=== PATIENT | male | born 1990 | race Caucasian/White ===

== ENCOUNTER 2016-12-22 09:30 | Emergency (ER) | payer OTHER ==
[2016-12-22 10:09] LABS: BASOPHIL 0.3 % (0-2); EOSINOPHIL 2.3 % (0-5); HCT 45.4 % (42.0-52.0); HGB 15.7 g/dl (13.2-18.0); LYMPHOCYTE 11.7 % (15-48); MCH 29.7 pg (25.0-31.0); MCHC 34.6 g/dL (32.0-36.0); MCV 85.8 fL (78.0-100.0); MONOCYTE 10.8 % (0-12); MPV 9.6 fL (6.0-9.5); NEUTROPHIL 74.9 % (41-80); PLT 292 K/uL (150-400); RBC 5.29 M/uL (4.70-6.00); RDW 12.4 % (11.5-14.0); WBC 15.4 K/uL (4.0-10.5)
[2016-12-22 10:28] LABS: ACETAMINOPHEN (TYLENOL) < 5.0 ug/mL (10.0-30.0); ALBUMIN 4.5 g/dL (3.5-5.0); ALCOHOL (ETOH) MEDICAL NONE DETECTED; BILIRUBIN - TOTAL 1.2 mg/dL (0.1-1.0); CREATININE 1.3 mg/dL (0.7-1.2); GLOBULIN (CALCULATION) 3.5 g/dL (2.2-4.2); POTASSIUM 4.3 mmol/L (3.5-5.1); SALICYLATE < 6 ug/mL (0-300)
== END 2016-12-22 11:02 | disposition critical access hospital (66) ==
LOC: FER 09:30
PROVIDERS: Emergency Medicine
DX: F19.10 Other psychoactive substance abuse, uncomplicated (principal); F17.200 Nicotine dependence, unspecified, uncomplicated
CPT/HCPCS: 36415; 80053; 85025; 99285; G0480

== ENCOUNTER 2020-11-25 03:39 | Emergency (ER) | payer OTHER ==
[2020-11-25] MEDS ORDERED: MEDROL 4MG DOSEP4 MG PO (04:21)
== END 2020-11-25 04:30 | disposition home or self-care (01) ==
LOC: FER 03:39
DX: M54.9 Dorsalgia, unspecified (principal); M25.50 Pain in unspecified joint; F17.200 Nicotine dependence, unspecified, uncomplicated; Z86.19 Personal history of other infectious and parasitic diseases
CPT/HCPCS: 99283; J7512

== ENCOUNTER 2020-11-27 20:48 | Emergency (ER) | payer OTHER ==
[~2020-11-27 20:48] MED LIST: MEDROL 4MG DOSEP4 MG PO
[2020-11-27 21:58] LABS: BASOPHIL 0.5 % (0-2); EOSINOPHIL 1.8 % (0-5); HCT 41.5 % (42.0-52.0); HGB 14.2 g/dl (13.2-18.0); LYMPHOCYTE 34.5 % (15-48); MCH 30.3 pg (25.0-31.0); MCHC 34.2 g/dL (32.0-36.0); MCV 88.7 fL (78.0-100.0); MONOCYTE 8.3 % (0-12); MPV 10.1 fL (6.0-9.5); NEUTROPHIL 54.4 % (41-80); NRBC 0; PLT 259 K/uL (150-400); RBC 4.68 M/uL (4.70-6.00); RDW 11.9 % (11.5-14.0); WBC 6.6 K/uL (4.0-10.5)
[2020-11-27 21:58] LABS: BILIRUBIN NEGATIVE (NEGATIVE); BLOOD NEGATIVE Ery/uL (NEGATIVE); CLARITY CLEAR (CLEAR); COLOR YELLOW (YELLOW); GLUCOSE (U) NORMAL (NORMAL); LEUKOCYTES 1+ Leu/uL (NEGATIVE); NITRITE NEGATIVE (NEGATIVE); PROTEIN NEGATIVE (NEGATIVE); SPECIFIC GRAVITY 1.015 (1.001-1.030); UROBILINOGEN >=8.0 mg/dL (0.2-1.0)
[2020-11-27 22:04] LABS: ALBUMIN 3.7 g/dL (3.4-5.0); BILIRUBIN - TOTAL 0.7 mg/dL (0.2-1.0); CREATININE 0.88 mg/dL (0.67-1.17); POTASSIUM 3.2 mmol/L (3.5-5.1); TOTAL PROTEIN 7.7 g/dL (6.4-8.2)
[2020-11-27 22:11] LABS: BACTERIA 2+; SQUAMOUS EPITHELIAL CELLS RARE
[2020-11-27] MEDS ORDERED: ONDANSETRON ODT4 MG PO (23:35)
[2020-11-27] MEDS ORDERED: BENTYL10 MG PO (23:35)
== END 2020-11-27 23:50 | disposition home or self-care (01) ==
LOC: FER 20:48
PROVIDERS: Nurse Practitioner Family
DX: B19.20 Unspecified viral hepatitis C without hepatic coma (principal); M54.9 Dorsalgia, unspecified
CPT/HCPCS: 36415; 80053; 81001; 85025; 87076; 87088; 87186; J1885

== ENCOUNTER 2020-11-30 00:35 | Emergency (ER) | payer OTHER ==
[~2020-11-30 00:35] MED LIST changes: +BENTYL10 MG PO; +ONDANSETRON ODT4 MG PO
[2020-11-30] MEDS ORDERED: LEVAQUIN250 MG PO (23:56)
[2020-11-30] MEDS ORDERED: PHENERGAN25 M1 PO (23:56)
== END 2020-11-30 01:20 | disposition left against medical advice (07) ==
LOC: FER 00:35
DX: R10.84 Generalized abdominal pain (principal); R11.2 Nausea with vomiting, unspecified; F17.200 Nicotine dependence, unspecified, uncomplicated; Z86.19 Personal history of other infectious and parasitic diseases; Z53.8 Procedure and treatment not carried out for other reasons
CPT/HCPCS: 99283; J2405; J7030

== ENCOUNTER 2020-11-30 20:49 | Emergency (ER) | payer OTHER ==
[2020-11-30 21:38] LABS: BASOPHIL 0.2 % (0-2); EOSINOPHIL 1.1 % (0-5); HCT 41.3 % (42.0-52.0); HGB 14.2 g/dl (13.2-18.0); LYMPHOCYTE 23.1 % (15-48); MCH 30.7 pg (25.0-31.0); MCHC 34.4 g/dL (32.0-36.0); MCV 89.2 fL (78.0-100.0); MONOCYTE 7.3 % (0-12); MPV 10.3 fL (6.0-9.5); NEUTROPHIL 67.9 % (41-80); NRBC 0; PLT 295 K/uL (150-400); RBC 4.63 M/uL (4.70-6.00); WBC 9.1 K/uL (4.0-10.5)
[2020-11-30 22:00] LABS: ALBUMIN 3.6 g/dL (3.4-5.0); BILIRUBIN - TOTAL 0.5 mg/dL (0.2-1.0); CREATININE 0.92 mg/dL (0.67-1.17); GLOBULIN (CALCULATION) 3.9 g/dL; POTASSIUM 3.5 mmol/L (3.5-5.1); TOTAL PROTEIN 7.5 g/dL (6.4-8.2)
[2020-11-30 22:13] LABS: LACTIC ACID 1.7 mmol/L (0.4-1.9)
[2020-11-30 22:22] LABS: BILIRUBIN NEGATIVE (NEGATIVE); BLOOD NEGATIVE Ery/uL (NEGATIVE); CLARITY CLEAR (CLEAR); COLOR YELLOW (YELLOW); GLUCOSE (U) NORMAL (NORMAL); LEUKOCYTES 2+ Leu/uL (NEGATIVE); NITRITE NEGATIVE (NEGATIVE); PROTEIN NEGATIVE (NEGATIVE); UROBILINOGEN 0.2 mg/dL (0.2-1.0)
[2020-11-30 22:30] LABS: BACTERIA TRACE
[2020-11-30] MEDS ORDERED: PHENERGAN25 M1 PO (23:56)
[2020-11-30] MEDS ORDERED: LEVAQUIN250 MG PO (23:56)
== END 2020-12-01 00:16 | disposition home or self-care (01) ==
LOC: FER 20:49
PROVIDERS: Emergency Medicine
DX: R10.9 Unspecified abdominal pain (principal); R11.0 Nausea; F17.200 Nicotine dependence, unspecified, uncomplicated
CPT/HCPCS: 36415; 80053; 81001; 82150; 83605; 83690; 85025; J1885; J2405; J7030

== ENCOUNTER 2020-12-31 14:39 | Emergency (ER) | payer OTHER ==
[~2020-12-31 14:39] MED LIST changes: +LEVAQUIN250 MG PO; +PHENERGAN25 M1 PO
== END 2020-12-31 14:45 | disposition home or self-care (01) ==
LOC: FER 14:39
DX: N20.0 Calculus of kidney (principal); N28.1 Cyst of kidney, acquired; Z53.8 Procedure and treatment not carried out for other reasons

== ENCOUNTER 2021-01-04 03:29 | Emergency (ER) | payer OTHER ==
[2021-01-04 04:10] LABS: BASOPHIL 0.5 % (0-2); EOSINOPHIL 4.7 % (0-5); HCT 42.2 % (42.0-52.0); HGB 14.3 g/dl (13.2-18.0); LYMPHOCYTE 30.3 % (15-48); MCH 30.3 pg (25.0-31.0); MCHC 33.9 g/dL (32.0-36.0); MCV 89.4 fL (78.0-100.0); MONOCYTE 11.4 % (0-12); MPV 10.6 fL (6.0-9.5); NEUTROPHIL 52.9 % (41-80); NRBC 0; PLT 274 K/uL (150-400); RBC 4.72 M/uL (4.70-6.00); RDW 12.7 % (11.5-14.0)
[2021-01-04 04:27] LABS: ALBUMIN 3.9 g/dL (3.4-5.0); BILIRUBIN - TOTAL 0.8 mg/dL (0.2-1.0); BUN/CREAT RATIO (CALC) 7.3 RATIO; CREATININE 1.09 mg/dL (0.67-1.17); GLOBULIN (CALCULATION) 4.1 g/dL; POTASSIUM 4.1 mmol/L (3.5-5.1)
[2021-01-04 04:53] LABS: BILIRUBIN NEGATIVE (NEGATIVE); BLOOD NEGATIVE Ery/uL (NEGATIVE); CLARITY CLEAR (CLEAR); COLOR YELLOW (YELLOW); GLUCOSE (U) NORMAL (NORMAL); LEUKOCYTES NEGATIVE Leu/uL (NEGATIVE); NITRITE NEGATIVE (NEGATIVE); PROTEIN TRACE (LOW) mg/dL (NEGATIVE)
[2021-01-04 04:57] LABS: BACTERIA TRACE; ECSTASY (MDMA) POSITIVE (NEGATIVE); MARIJUANA (THC) POSITIVE (NEGATIVE); SQUAMOUS EPITHELIAL CELLS RARE
[2021-01-04 04:58] LABS: AMPHETAMINES POSITIVE (NEGATIVE); BARBITURATES NEGATIVE (NEGATIVE); METHADONE NEGATIVE (NEGATIVE); OPIATES NEGATIVE (NEGATIVE); OXYCODONE NEGATIVE (NEGATIVE)
[2021-01-04] MEDS ORDERED: CIPRO500 MG PO (05:45)
[2021-01-04] MEDS ORDERED: PERCOCET 5-3251 EACH PO (05:45)
[2021-01-04] MEDS ORDERED: FLOMAX0.4 MG PO (05:45)
[2021-01-04] MEDS ORDERED: ETODOLAC300 MG PO (05:45)
[2021-01-06 21:10] LABS: CHLAMYDIA TRACHOMATIS, NAA Negative (Negative); NEISSERIA GONORRHOEAE, NAA Negative (Negative)
== END 2021-01-04 06:20 | disposition home or self-care (01) ==
LOC: FER 03:29
PROVIDERS: Emergency Medicine Emergency Medical Services
DX: R10.30 Lower abdominal pain, unspecified (principal); N50.812 Left testicular pain; R50.9 Fever, unspecified; R11.0 Nausea; F17.210 Nicotine dependence, cigarettes, uncomplicated; Z86.19 Personal history of other infectious and parasitic diseases; Z87.442 Personal history of urinary calculi; Z98.890 Other specified postprocedural states
CPT/HCPCS: 36415; 80053; 80305; 81001; 83605; 85025; 87076; 87088; 87491; 87591; J1885; J2270; J2405; J7030

== ENCOUNTER 2021-01-07 18:38 | Emergency (ER) | payer OTHER ==
[~2021-01-07 18:38] MED LIST changes: +CIPRO500 MG PO; +ETODOLAC300 MG PO; +FLOMAX0.4 MG PO; +PERCOCET 5-3251 EACH PO
[2021-01-07 19:44] LABS: BASOPHIL 0.5 % (0-2); EOSINOPHIL 1.3 % (0-5); HCT 41.9 % (42.0-52.0); HGB 14.3 g/dl (13.2-18.0); LYMPHOCYTE 22.3 % (15-48); MCHC 34.1 g/dL (32.0-36.0); MONOCYTE 7.6 % (0-12); MPV 10.1 fL (6.0-9.5); NEUTROPHIL 68.1 % (41-80); NRBC 0; PLT 300 K/uL (150-400); RBC 4.76 M/uL (4.70-6.00); RDW 12.2 % (11.5-14.0); WBC 8.4 K/uL (4.0-10.5)
[2021-01-07 20:00] LABS: ALBUMIN 4.2 g/dL (3.4-5.0); BILIRUBIN - TOTAL 1.2 mg/dL (0.2-1.0); BUN/CREAT RATIO (CALC) 10.9 RATIO; CREATININE 1.01 mg/dL (0.67-1.17); GLOBULIN (CALCULATION) 3.9 g/dL; POTASSIUM 3.5 mmol/L (3.5-5.1); TOTAL PROTEIN 8.1 g/dL (6.4-8.2)
[2021-01-08] MEDS ORDERED: ATARAX25 MG PO (05:19)
[2021-01-08] MEDS ORDERED: BENTYL10 MG PO (05:19)
[2021-01-08] MEDS ORDERED: CEPHALEXIN500 M1 PO (05:19)
[2021-01-08] MEDS ORDERED: CITRATE OF MAG296 ML PO (21:10)
== END 2021-01-07 21:45 | disposition left against medical advice (07) ==
LOC: FER 18:38
PROVIDERS: Emergency Medicine Emergency Medical Services
DX: R10.30 Lower abdominal pain, unspecified (principal); R00.0 Tachycardia, unspecified; F17.200 Nicotine dependence, unspecified, uncomplicated; Z85.47 Personal history of malignant neoplasm of testis; Z87.19 Personal history of other diseases of the digestive system; Z87.442 Personal history of urinary calculi
CPT/HCPCS: 36415; 80053; 83605; 85025; 96372; J0500; J1885; J2405; J7030

== ENCOUNTER 2021-01-08 02:10 | Emergency (ER) | payer OTHER ==
[2021-01-08 03:52] LABS: BILIRUBIN NEGATIVE (NEGATIVE); BLOOD NEGATIVE Ery/uL (NEGATIVE); CLARITY CLEAR (CLEAR); COLOR YELLOW (YELLOW); GLUCOSE (U) NORMAL (NORMAL); LEUKOCYTES 2+ Leu/uL (NEGATIVE); NITRITE NEGATIVE (NEGATIVE); PROTEIN NEGATIVE (NEGATIVE); UROBILINOGEN 0.2 mg/dL (0.2-1.0); pH 7.5 (5.0-9.0)
[2021-01-08 03:56] LABS: AMPHETAMINES POSITIVE (NEGATIVE); BARBITURATES NEGATIVE (NEGATIVE); ECSTASY (MDMA) NEGATIVE (NEGATIVE); MARIJUANA (THC) POSITIVE (NEGATIVE); METHADONE NEGATIVE (NEGATIVE); OPIATES NEGATIVE (NEGATIVE); OXYCODONE POSITIVE (NEGATIVE)
[2021-01-08 03:58] LABS: URINARY RBC RARE
[2021-01-08 03:59] LABS: BACTERIA TRACE
[2021-01-08] MEDS ORDERED: CEPHALEXIN500 M1 PO (05:19)
[2021-01-08] MEDS ORDERED: BENTYL10 MG PO (05:19)
[2021-01-08] MEDS ORDERED: ATARAX25 MG PO (05:19)
[2021-01-08] MEDS ORDERED: CITRATE OF MAG296 ML PO (21:10)
== END 2021-01-08 05:32 | disposition left against medical advice (07) ==
LOC: FER 02:10
PROVIDERS: Emergency Medicine Emergency Medical Services
DX: R10.30 Lower abdominal pain, unspecified (principal); F19.10 Other psychoactive substance abuse, uncomplicated; M54.5 Low back pain; F17.200 Nicotine dependence, unspecified, uncomplicated; Z86.19 Personal history of other infectious and parasitic diseases; Z53.8 Procedure and treatment not carried out for other reasons
CPT/HCPCS: 80305; 81001; 87088; J1885

== ENCOUNTER 2021-01-08 20:41 | Emergency (ER) | payer OTHER ==
[~2021-01-08 20:41] MED LIST changes: +ATARAX25 MG PO; +CEPHALEXIN500 M1 PO
[2021-01-08] MEDS ORDERED: CITRATE OF MAG296 ML PO (21:10)
== END 2021-01-08 21:21 | disposition home or self-care (01) ==
LOC: FER 20:41
DX: K59.00 Constipation, unspecified (principal); K62.89 Other specified diseases of anus and rectum
CPT/HCPCS: 74018; 99283

== ENCOUNTER 2021-01-08 23:14 | Emergency (ER) | payer OTHER ==
[~2021-01-08 23:14] MED LIST changes: +CITRATE OF MAG296 ML PO
== END 2021-01-09 00:55 | disposition home or self-care (01) ==
LOC: FER 23:14
DX: K59.00 Constipation, unspecified (principal)
CPT/HCPCS: 99284

== ENCOUNTER 2021-01-09 02:21 | Emergency (ER) | payer OTHER | END 2021-01-09 02:51 | disposition left against medical advice (07) | LOC: FER 02:21 | DX: R10.9 Unspecified abdominal pain (principal); Z53.8 Procedure and treatment not carried out for other reasons | CPT/HCPCS: 99283 ==

== ENCOUNTER 2021-01-10 17:03 | Emergency (ER) | payer OTHER | END 2021-01-10 17:25 | disposition left against medical advice (07) | LOC: FER 17:03 | DX: F68.10 Factitious disorder imposed on self, unspecified (principal); F60.2 Antisocial personality disorder; F19.10 Other psychoactive substance abuse, uncomplicated; R10.9 Unspecified abdominal pain | CPT/HCPCS: 99283 ==

== ENCOUNTER 2021-01-11 04:27 | Emergency (ER) | payer OTHER ==
[2021-01-11 05:30] LABS: BASOPHIL 0.9 % (0-2); EOSINOPHIL 8.6 % (0-5); HCT 41.7 % (42.0-52.0); HGB 13.7 g/dl (13.2-18.0); LYMPHOCYTE 38.5 % (15-48); MCH 30.2 pg (25.0-31.0); MCHC 32.9 g/dL (32.0-36.0); MONOCYTE 12.8 % (0-12); MPV 9.6 fL (6.0-9.5); NEUTROPHIL 39.1 % (41-80); NRBC 0; PLT 305 K/uL (150-400); RBC 4.53 M/uL (4.70-6.00); RDW 12.7 % (11.5-14.0); WBC 7.6 K/uL (4.0-10.5)
[2021-01-11 05:32] LABS: MCV 92.1 fL (78.0-100.0)
[2021-01-11 06:01] LABS: ALBUMIN 3.8 g/dL (3.4-5.0); ALKALINE PHOSHATASE 61 U/L (46-116); ALT 84 U/L (16-63); AST 30 U/L (15-37); BILIRUBIN - TOTAL 1.4 mg/dL (0.2-1.0); BUN 10 mg/dL (7-18); CHLORIDE 104 mmol/L (98-107); CO2 (BICARBONATE) 27 mmol/L (21-32); GLOBULIN (CALCULATION) 3.7 g/dL; GLUCOSE 94 mg/dL (74-106); POTASSIUM 3.7 mmol/L (3.5-5.1); TOTAL PROTEIN 7.5 g/dL (6.4-8.2)
== END 2021-01-11 05:40 | disposition left against medical advice (07) ==
LOC: FER 04:27
PROVIDERS: Emergency Medicine Emergency Medical Services
DX: R44.1 Visual hallucinations (principal); R44.0 Auditory hallucinations; F19.10 Other psychoactive substance abuse, uncomplicated; F17.200 Nicotine dependence, unspecified, uncomplicated; Z86.19 Personal history of other infectious and parasitic diseases
CPT/HCPCS: 36415; 80053; 84443; 85025; 93005; G0480

== ENCOUNTER 2021-02-26 16:26 | Emergency (ER) | payer OTHER | END 2021-02-26 16:50 | disposition home or self-care (01) | LOC: FER 16:26 | DX: T40.1X1A Poisoning by heroin, accidental (unintentional), initial encounter (principal) | CPT/HCPCS: 99284 ==